=== PATIENT | male | born 1955 | race Caucasian/White ===

== ENCOUNTER 2018-11-03 13:43 | Inpatient (IN) | payer OTHER ==
[~2018-11-03] VITALS: Ht 185.4 cm; Wt 100.2 kg
[2018-11-03 14:09] VITALS: BP 143/82
[2018-11-03 14:31] LABS: ABSOLUTE NEUTROPHILS 6.1 thou/uL (1.4-8.2); BASOPHILS 0.9 % (0.0-2.0); EOSINOPHILS 5.2 % (0.0-3.0); LYMPHOCYTES 16.3 % (24.0-44.0); MCH 30.5 pg (26.0-34.0); MCHC 34.9 g/dL (28.0-37.0); MCV 87.3 fL (80.0-100.0); MONOCYTES 8.7 % (1.0-8.0); PLATELET COUNT 198 thou/uL (150-400); POLYS 68.9 % (36.0-66.0); RBC 5.27 mil/uL (4.50-6.00); RDW 14.5 % (10.5-14.5); WBC 8.8 thou/uL (4.0-11.0)
[2018-11-03 14:39] LABS: ANION GAP 9 mmol/L (7-16); BUN 22 mg/dL (7-18); CHLORIDE 101 mmol/L (98-107); CO2 30 mmol/L (21-32); CREATININE 1.2 mg/dL (0.7-1.3); GLUCOSE 94 mg/dL (74-106); POTASSIUM 4.5 mmol/L (3.5-5.1); SODIUM 140 mmol/L (136-145)
[2018-11-03 14:47] LABS: TROPONIN-I <0.06 ng/mL (<0.06)
[2018-11-03] MEDS ORDERED: LANSOPRAZOLE30 MG PO (15:57)
[2018-11-03] MEDS ORDERED: AMLODIPINE-BEN1 EAC2 PO (15:58)
[2018-11-03] MEDS ORDERED: VITAMIN D5000 UNIT PO (16:02)
[2018-11-03] MEDS ORDERED: ASPIR-TRIN325 MG PO (16:02)
[2018-11-03] MEDS ORDERED: UNICOMPLEX M TA1 TA1 PO (16:03)
[2018-11-03] MEDS ORDERED: FLAX SEED OIL1000 MG PO (16:03)
[2018-11-03 16:30] LABS: CHOLESTEROL 214 mg/dL (<200); HDL CHOLESTEROL 50 mg/dL (>40); LDL CHOLESTEROL 130 mg/dL (<100); TC:HDL 4.3 Ratio (Not establshd); TRIGLYCERIDE 171 mg/dL (<150); VLDL 34 mg/dL (<40)
--- NOTE | 2018-11-03 17:00 | EKG ---
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: [facility] : 1955 Requested By: Mayito Devi Order Number: [id number] MD: Silvino Rios Measurements Intervals [place] Rate: 76 P: 37 MO: 186 QRS: 16 QRSD: 122 T: 29 QT: 388 QTc: 437 Interpretive Statements Sinus rhythm Normal tracing Baseline wander in lead(s) V1,V2 No previous ECG available for comparison Electronically Signed On 11-03-2018 17:00:14 RADIOLOGICAL TECHNICIAN by Silvino Rios [email or web address] ��������������������������������������������� <ELECTRONICALLY SIGNED> ���������������������������������������� By: Silvino Rios MD, [facility] ��������������������������������������������� 11/03/18 1700 1346 1346 Silvino Rios MD, FACC /EPI
[2018-11-03 17:20] VITALS: BP 141/73
[2018-11-03 20:50] VITALS: BP 144/80
[2018-11-03 22:00] VITALS: BP 144/80
--- NOTE | 2018-11-04 02:53 | EKG ---
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 : 1955 Requested By: Silvino Rios Order Number: [id number] MD: Jonathan Rodríguez Measurements Intervals [place] Rate: 71 P: 55 OR: 166 QRS: 22 QRSD: 99 T: 26 QT: 396 QTc: 431 Interpretive Statements Sinus rhythm Early transition AC noise present Compared to ECG 11/03/2018 13:46:16 No significant changes Electronically Signed On 11-04-2018 2:53:40 FARM FACILITY MANAGER by Jonathan Rodríguez [email or web address] ��������������������������������������������� <ELECTRONICALLY SIGNED> ���������������������������������������� By: Jonathan Rodríguez MD ��������������������������������������������� 11/04/18 0253 08 08 Jonathan Rodríguez MD /EPI
[2018-11-04 04:45] VITALS: BP 105/62
[2018-11-04 05:51] LABS: MCH 29.6 pg (26.0-34.0); MCHC 33.7 g/dL (28.0-37.0); MCV 87.9 fL (80.0-100.0); RBC 4.67 mil/uL (4.50-6.00); RDW 14.7 % (10.5-14.5)
[2018-11-04 05:58] LABS: HEMOGLOBIN 13.8 gm/dL (14.0-18.0)
[2018-11-04 06:17] LABS: ALBUMIN 3.4 g/dL (3.4-5.0); CALCIUM 8.7 mg/dL (8.5-10.1); CREATININE 1.2 mg/dL (0.7-1.3); POTASSIUM 4.2 mmol/L (3.5-5.1); TOTAL BILIRUBIN 0.8 mg/dL (<0.1-1.0); TOTAL PROTEIN 6.3 g/dL (6.4-8.2); TROPONIN-I 0.22 ng/mL (<0.06)
[2018-11-04 08:30] VITALS: BP 119/68
--- NOTE | 2018-11-04 09:14 | NUR ---
ASSUME CARE 1900. PT DENIES ANY PAIN. SORENEES NOTED AT CATH SITE(RIGHT GROIN). MILD BRUISING AND DAINAGE NOTED BUT SITE IS SOFT/CDI. TOLERATES ACTIVITY WELL. PROGRESSING WELL WITH POC. PLAN IS POSSIBLE DISCHARGE TODAY OR TOMORROW. WILL CONTINUE TO MONITOR AND FOLLOW WITH POC
[2018-11-04 12:00] VITALS: BP 102/61
--- NOTE | 2018-11-04 12:46 | CATHLAB ---
[facility] [address] [place] [address] INVASIVE PROCEDURE REPORT Name: XAVIER GARNICA Room #: 215-P ADM IN M.R.#: [id number] ������������� Admission: 11/03/18 ������������� Attend Phys: Al Bowman MD Discharge: ��� ������������� ��� Date of : 59 Date of Service: 11/04/18 1245 �� Report #: [id number] �������� ��������������������������������������������[id number] THIS REPORT FOR: //name// APPROVED REPORT Study performed: 11/03/2018 17:14:26 Patient Details Patient Status: In-Patient Room #: The patient is a 63 year-old male Event Personnel Silvino Rios Slate Mixer, Cristine Aldana, Gil Veliz RN, Shira Denton RTR, SEASONER HAND Scrub, Juan José Perry RT(R)(CV) Scrub Procedures Performed Art Access - R femoral artery* Left Heart Cath w/or w/o Coronaries [id number] [facility] PTCA Single Vessel OM [id number] PCISINGLE Hemostasis w/ Mynx 12634 Initial Mod Sed Same Phys/QHP Gr5y 666399 83284 Mod Sed Same Phys/QHP Ea 173962 Indication Chest pain Procedure Narrative The patient was brought urgently to the Cardiac Catheterization Laboratory and was prepped and draped in a sterile manner. The Right Groin^ was infiltrated with 1% Lidocaine subcutaneous anesthesia. A PINNACLE 6FR Sheath #[id number] sheath was inserted into the RFA^. Coronary angiography was performed using coronary diagnostic catheters. The right coronary system was accessed and visualized with a JR 4 catheter. The left coronary system was accessed and visualized with a JL 4.5 catheter. The left ventricle was accessed and visualized with a Pigtail catheter. Left ventricular/Aortic Valve gradient assessed via catheter pullback. Left ventriculogram was performed in SORENSON projection. Closure device was deployed with a 6 Fr Mynx. The patient tolerated the procedure well and there were no complications associated with the procedure. There was no hematoma. Intraoperative Conscious Sedation Sedation start time: 17:27 Case end Time: 20:21 Fentanyl 100 mcg Versed [address] [address] INVASIVE PROCEDURE REPORT Name: XAVIER GARNICA Room #: 215-P [facility] IN [facility].#: [id number] ������������� Admission: 11/03/18 ������������� Attend Phys: Al Bowman MD Discharge: ��� ������������� ��� Date of : 59 Date of Service: 11/04/18 1245 �� Report #: [id number] �������� ��������������������������������������������[id number] Fluoro Time: 70.41 minutes Dose: DAP 62195.00 cGycm2 7954 mGy Contrast Type and Amount: Omnipaque 410 ml Coronary Angiography The patient's coronary anatomy is right dominant. Diagnostic Cath Left Main Large, alone angiographically normal left main LAD 60-65% proximal LAD stenosis Circumflex Mild proximal circumflex plaquing OM1 Severe 95% proximal first marginal branch stenosis OM2 Distally arising second marginal branch, angiographically normal Right Coronary The right coronary was dominant and moderately calcified. Variable disease throughout the proximal, mid and distal right coronary 65-70% proximal right coronary stenosis. 65-70% mid right coronary stenosis R PDA Sequential 50-60% proximal PDA stenoses Ramus Mild plaquing of the ramus branch Left Ventriculography The left ventricle is normal in size with normal contractility. The left ventricular ejection fraction is estimated to be 55-60%. Left ventricular wall motion abnormalities are present. There is no mitral insufficiency. Distal anterolateral wall hypokinesis IVUS Findings Sprinter OTW 2.0 x 12 #[id number] Hemodynamics The aortic pressure is 155/79 mmHg with a mean of 112 mmHg. The left ventricular pressure is 166/8 mmHg with a mean of mmHg. The left ventricular end diastolic pressure is 21 mmHg. PCI Technique Lesion Anticoagulation was achieved with Heparin, Integrilin. Patient was preloaded with Effient. Percutaneous coronary intervention was performed on the first obtuse marginal branch segment. The lesion stenosis prior to intervention was 99% with ALEX 3 flow. A LAUNCHER 6FR EBU 4 #[id number] Guide Catheter was used to engage the ostium. A Luge Wire .014 x 182CM #[id number] Interventional Guidewire was used to cross the lesion. [facility] [address] [place] [address] INVASIVE PROCEDURE REPORT Name: XAVIER GARNICA Room #: 215-P [facility] IN M.R.#: [id number] ������������� Admission: 11/03/18 ������������� Attend Phys: Al Bowman MD Discharge: ��� ������������� ��� Date of : 59 Date of Service: 11/04/18 1245 �� Report #: [id number] �������� ��������������������������������������������[id number] BALLOON DILATION A Balloon catheter Sprinter OTW 3.0 x 12 #[id number] was inserted and inflated up to 14.00atm for 12seconds. Additional Inflation: 12.00atm for 26seconds. Additional Inflation: 20.00atm for 62seconds. Extraordinarily difficult to wire this marginal branch due to 120� bend of the circumflex off of the left main, followed by a 90% proximal circumflex bend, then 90% angle at the origin of the first marginal branch. Ultimately after multiple wires, I was able to deliver a balloon to the first marginal branch. Moderate residual stenosis remained after a long inflation. Despite guide catheter exchanges, stiffer wire placement, and "jose" wire placement, this vessel would not allow even a low profile short stent to be delivered to this marginal branch. Overall excellent guide support. The wire consistently prolapsed into an ectatic, "capone" proximal LAD segment; the stent would not traverse the ostial circumflex angle. Dr. Barrow assisted in the procedure, and was also unable to deliver a stent to the OM1 angioplasty site. Final angiography reveals 50 % stenosis with ALEX 3 flow. BALLOON DILATION A Balloon catheter Sprinter OTW 2.0 x 12 #[id number] was inserted and inflated up to 20.00atm for 62seconds. Conclusion 1. Normal left ventricular systolic function with minimal distal anterolateral wall hypokinesis. EF 60% 2. Normal left main 3. Proximal LAD stensis 60-65% 4. Large OM1 with 95% proximal stenosis, treated with 3.0 x 12mm PTCA; not possible to deliver stent for reasons discussed above 5. RCA dominant with diffuse proximal, mid, and distal disease. Recommendations Cardiac Rehabilitation Referral Aggressive Medical Therapy Medications Administered JHON Inhibitor (any) Aspirin (any) Beta Jim (any) Statin (any) [facility] [address] [place] [address] INVASIVE PROCEDURE REPORT Name: XAVIER GARNICA Room #: 215-P ADM IN M.R.#: [id number] ������������� Admission: 11/03/18 ������������� Attend Phys: Al Bowman MD Discharge: ��� ������������� ��� Date of : 59 Date of Service: 11/04/18 [facility] �� Report #: [id number] �������� ��������������������������������������������[id number] Prasugrel Cardiac Rehabilitation Referral ��������������������������������������������� <ELECTRONICALLY SIGNED> ���������������������������������������� By: Silvino Rios MD, FACC ��������������������������������������������� 11/04/18 1245 1245 44 Silvino Rios MD, FACC /INF
--- NOTE | 2018-11-04 12:49 | EKG ---
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: : 1955 Requested By: Silvino Rios Order Number: [id number] MD: Silvino Rios Measurements Intervals [place] Rate: 73 P: 43 AK: 162 QRS: 33 QRSD: 88 T: 27 QT: 408 QTc: 450 Interpretive Statements Sinus rhythm Normal tracing Compared to ECG 11/03/2018 22:09:00 No significant changes Electronically Signed On 11-04-2018 12:49:43 HEAD OF PHYSICS by Silvino Rios [email or web address] ��������������������������������������������� <ELECTRONICALLY SIGNED> ���������������������������������������� By: Silvino Rios MD, [facility] ��������������������������������������������� 11/04/18 1249 0643 2 Silvino Rios MD, FACC /EPI
[2018-11-04 16:45] VITALS: BP 116/67
--- NOTE | 2018-11-04 18:00 | NUR ---
ASSUMED CARE OF PT AT SHIFT CHANGE. ASSESSMENTS CHARTED. MEDS GIVEN PER NOV. PT ALERT AND ORIENTED, VSS, NO C/O PAIN, DENIES CHEST PAIN, NO S/SX OF CARDIAC OR RESP DISTRESS NOTED. O2 SATS WNL ON ROOM AIR. GROIN SITE CONTINUES TO BE BRUISED, DRESSING REMAINS DRY AND INTACT WITH DRIED DRAINAGE. NO HEMATOMA. PT WALKED AROUND UNIT THIS SHIFT, TOLERATED WELL. URINE OUTPUT ADEQUATE, PT HAD BM THIS SHIFT. FAMILY AT BEDSIDE THROUGHOUT DAY. 3 OF 3 BOTTLE INTEGRILIN GTT CONTNUES AT 2MCG. PT DENIES CONCERNS AT THIS TIME. WILL CONTINUE TO MONITOR AND FOLLOW POC.
[2018-11-04 20:00] VITALS: BP 116/60
[2018-11-05 04:35] VITALS: BP 121/66
--- NOTE | 2018-11-05 05:19 | NUR ---
PT RESTED WELL, DENIES CHEST PAIN, VITALS WNL. RIGHT GROIN SITE UNCHANGED, BRUISED, NO HEMATOMA AND SOFT TO TOUCH.
[2018-11-05 08:55] VITALS: BP 128/68
[2018-11-05] MEDS ORDERED: EFFIENT10 MG PO (09:25)
[2018-11-05] MEDS ORDERED: CRESTOR20 MG PO (09:25)
[2018-11-05] MEDS ORDERED: TOPROL XL50 MG PO (09:25)
[2018-11-05 09:54] VITALS: BP 128/68
[2018-11-05 10:21] VITALS: BP 128/68
--- NOTE | 2018-11-05 10:51 | NUR ---
ASSUMED CARE OF PT AT SHIFT CHANGE. ASSESSMENTS CHARTED. MEDS GIVEN PER NOV. PT ALERT AND ORIENTED, SPOUSE AT BEDSIDE. NO C/O PAIN, DENIES CHEST PAIN. NO S/SX OF CARDIAC OR RESP DISTRESS NOTED. O2 SATS WNL ON ROOM AIR. DC ORDERS ACKNOWLEDGED AND IMPLEMENTED. DC PAPERWORK DISCUSSED WITH PT, COMMUNICATED UNDERSTANDING. IV REMOVED, TELE REMOVED, PT LEFT UNIT WITH ALL BELONGINGS AT APPROX 1050.
== END 2018-11-05 10:50 | disposition home or self-care (01) | DRG 250 ==
LOC: ER 13:43 → TBACV 20:27 → 2N 22:40
PROVIDERS: Emergency Medicine; Internal Medicine; Nurse Practitioner Gerontology; ADMIT Internal Medicine
PROC: B2151ZZ Fluoroscopy of Left Heart using Low Osmolar Contrast (ICD-10-PCS; principal; 2018-11-03)
PROC: B2111ZZ Fluoroscopy of Multiple Coronary Arteries using Low Osmolar Contrast (ICD-10-PCS; principal; 2018-11-03)
PROC: 4A023N7 Measurement of Cardiac Sampling and Pressure, Left Heart, Percutaneous Approach (ICD-10-PCS; principal; 2018-11-03)
PROC: 02703ZZ Dilation of Coronary Artery, One Artery, Percutaneous Approach (ICD-10-PCS; principal; 2018-11-03)
DX: I21.4 Non-ST elevation (NSTEMI) myocardial infarction (principal); E43 Unspecified severe protein-calorie malnutrition; I10 Essential (primary) hypertension; I25.119 Atherosclerotic heart disease of native coronary artery with unspecified angina pectoris; E78.5 Hyperlipidemia, unspecified; K21.9 Gastro-esophageal reflux disease without esophagitis; Z79.82 Long term (current) use of aspirin; Z95.5 Presence of coronary angioplasty implant and graft; Z82.49 Family history of ischemic heart disease and other diseases of the circulatory system; Z79.899 Other long term (current) drug therapy
CPT/HCPCS: 10081

== ENCOUNTER → 2018-11-24 | Outpatient (CLI) | payer OTHER ==
[~2018-11-24] MED LIST: AMLODIPINE-BEN1 EAC2 PO; ASPIR-TRIN325 MG PO; CRESTOR20 MG PO; EFFIENT10 MG PO; FLAX SEED OIL1000 MG PO; LANSOPRAZOLE30 MG PO; TOPROL XL50 MG PO; UNICOMPLEX M TA1 TA1 PO; VITAMIN D5000 UNIT PO
--- NOTE | 2018-11-24 15:54 | 2DMMODE ---
[facility] [place] [place] [address] 2 D/M-MODE ECHOCARDIOGRAM Name: XAVIER GARNICA [facility] [id number] ������������� Admission: 11/24/18 ������������� Attend Phys: Silvino Rios, Discharge: ��� ������������� ��� Date of : 59 Date of Service: 11/24/18 1554 �� Report #: [id number] �������� ��������������������������������������������[id number] THIS REPORT FOR: //name// APPROVED REPORT Study performed: 11/24/2018 13:39:42 EXAM: Comprehensive 2D, Doppler, and color-flow Echocardiogram Patient Location: Out-Patient Status: routine BSA: 2.20 HR: 58 bpm BP: 134/82 mmHg Rhythm: NSR Indications CAD Hx: Stents, HTN, HLP. 2D Dimensions RVDd: 47.01 mm IVSd: 9.70 (7-11mm) LVOT Diam: 21.90 (18-24mm) LVDd: 50.53 mm PWd: 8.90 (7-11mm) Ascending Ao: 35.63 (22-36mm) LVDs: 34.81 (25-40mm) Aortic Root: 34.79 mm Volumes Left Atrial Volume (Systole) Single Plane 4CH: 64.08 mL Single Plane 2CH: 64.82 mL LA ESV Index: 34.00 mL/m2 Aortic Valve AoV Peak Ervin.: 1.17 m/s AO Peak Gr.: 5.49 mmHg LVOT Max P.15 mmHg LVOT Max V: 1.02 m/s MARCELINA Vmax: 3.27 cm2 Mitral Valve E/A Ratio: 1.4 MV Decel. Time: 213.65 ms MV E Max Ervin.: 0.73 m/s MV A Ervin.: 0.52 m/s MV PHT: 61.96 ms [facility] [place] [address] [place] [address] 2 D/M-MODE ECHOCARDIOGRAM Name: XAVIER GARNICA Room #: REG [facility]#: [id number] ������������� Admission: 11/24/18 ������������� Attend Phys: Silvino Rios, Discharge: ��� ������������� ��� Date of : 59 Date of Service: 11/24/18 1554 �� Report #: [id number] �������� ��������������������������������������������[id number] IVRT: 101.50 ms Pulmonary Valve PV Peak Ervin.: 0.98 m/s PV Peak Gr.: 3.86 mmHg Pulmonary Vein P Vein S: 0.41 m/s P Vein A: 0.27 m/s P Vein D: 0.34 m/s P Vein A Dur.: 120.0 msec P Vein S/D Ratio: 1.21 Tricuspid Valve TR Peak Ervin.: 2.59 m/s RAP Estimate: 5.00 mmHg TR Peak Gr.: 26.76 mmHg PA Pressure: 32.00 mmHg Left Ventricle The left ventricle is normal size. There is normal left ventricular wall thickness. Left ventricular systolic function is normal. Distal anterior and inferoapical hypokinesis LVEF is 55-60%. Moderate diastolic dysfunction is present (pseudonormal filling). Right Ventricle The right ventricle is normal size. The right ventricular systolic function is normal. Atria Left atrium is mildly dilated. Right atrium is mildly dilated. Aortic Valve Aortic valve is trileaflet. No aortic regurgitation is present. There is no aortic valvular stenosis. Mitral Valve The mitral valve is normal in structure. Mild mitral regurgitation. Tricuspid Valve The tricuspid valve is normal in structure. Mild tricuspid regurgitation. Estimated PAP is 30-35mmHg. Pulmonic Valve The pulmonary valve is normal in structure. Trace pulmonic regurgitation. [facility] [address] [place] [address] 2 D/M-MODE ECHOCARDIOGRAM Name: XAVIER GARNICA Room #: REG Kalani#: [id number] ������������� Admission: 11/24/18 ������������� Attend Phys: Silvino Rios, Discharge: ��� ������������� ��� Date of : 59 Date of Service: 11/24/18 1554 �� Report #: [id number] �������� ��������������������������������������������[id number] The aortic root is normal in size. The ascending aorta is normal in size. IVC is normal in size and collapses >50% with inspiration. Pericardium There is no pericardial effusion. <Conclusion> Left ventricular systolic function is normal. Distal anterior and inferoapical hypokinesis LVEF is 55-60%. Moderate diastolic dysfunction Both atria are mildly dilated. Aortic valve is trileaflet. No aortic regurgitation or stenosis. The mitral valve is normal in structure. Mild mitral regurgitation. Mild tricuspid regurgitation. Estimated pulmonary artery pressure of 30-35mmHg. There is no pericardial effusion. ��������������������������������������������� <ELECTRONICALLY SIGNED> ���������������������������������������� By: Silvino Rios MD, [facility] ��������������������������������������������� 11/24/18 1554 1554 1554 Silvino Rios MD, FAC /INF
== END ==
LOC: CV 09:50
DX: I08.1 Rheumatic disorders of both mitral and tricuspid valves (principal); I65.23 Occlusion and stenosis of bilateral carotid arteries; I10 Essential (primary) hypertension; I25.10 Atherosclerotic heart disease of native coronary artery without angina pectoris; E78.5 Hyperlipidemia, unspecified; R09.89 Other specified symptoms and signs involving the circulatory and respiratory systems

== ENCOUNTER → 2019-04-03 | Outpatient (CLI) | payer OTHER ==
--- NOTE | 2019-04-03 17:14 | EXE ---
[facility] [address] [place] [address] STRESS ECHOCARDIOGRAM Name: XAVIER GARNICA MARIA VICTORIA Room #: REG CL Kalani#: [id number] ������������� Admission: 04/03/19 ������������� Attend Phys: Silvino Rios, Discharge: ��� ������������� ��� Date of : 59 Date of Service: 04/03/19 1714 �� Report #: [id number] �������� ��������������������������������������������[id number] THIS REPORT FOR: //name// APPROVED REPORT Study performed: 04/03/2019 13:10:23 Exam: Stress Echocardiogram Indication: CAD s/p PCI Patient Location: Out-Patient Stress Nurse: Justyna Steele RN Room #: Echo lab 2 Status: routine Ht: 6 ft 0 in HR: 57 bpm BP: 148/92 mmHg Rhythm: Bradycardia Medical History Medical History: CAD s/p stent, HTN, Hyperlipidemia Cardiac Risk Factors: HTN, Hyperlipidemia Previous Cardiac Procedures: PCI Exercise History: Physically active Procedure The patient underwent an Exercise Stress Test using the Arturo Protocol. Blood pressure, heart rate, and EKG were monitored. An Echocardiogram was performed by assistant technician in four stages in quad fashion. At peak stress, four selected images were obtained and placed side by side with resting images for comparison. Stress Test Details Stress Test: Exercise stress testing was performed using a Arturo protocol. HR Resting HR: 57 bpm Max Heart Rate (APMHR): 158 bpm Max HR Achieved: 184 bpm Target HR (85% APMHR): 134 bpm % of APMHR: 116 Recovery HR: 93 bpm HR response to stress: Normal HR response to stress BP Resting BP: 148/92 mmHg Max BP: 190/80 mmHg Recovery BP: 150/78 mmHg [facility] [place] [address] STRESS ECHOCARDIOGRAM Name: XAVIER GARNICA Room #: REG CL [facility]#: [id number] ������������� Admission: 04/03/19 ������������� Attend Phys: Silvino Rios, Discharge: ��� ������������� ��� Date of : 59 Date of Service: 04/03/19 1714 �� Report #: [id number] �������� ��������������������������������������������[id number] BP response to stress: Normal blood pressure response to stress. ECG Resting ECG: Sinus Rhythm Stress ECG: Sinus Rhythm ST Change: Horizontal ST depression Maximum ST Deviation: 1 mm Arrhythmia: None Recovery ECG: Sinus Rhythm Recovery ST Change: Normal Recovery ST Deviation: 0 mm Recovery Arrhythmia: None Clinical Reason for Termination: Maximal effort Exercise duration: 9 min sec Highest Stage Achieved: Stage 3: 3.4 mph at 14% grade. Exercise capacity: 10.4 METs Overall Exercise Capacity for Age: Good Angina Score: None Stress ECG Conclusion Clinical: Non-ischemic Abnormal exercise stress ECG consistent with stress-induced myocardial ischemia. Parmar Treadmill Score is 4.0 which is Moderate risk. Pre-Stress Echo The resting Echocardiogram showed normal left ventricular contractility with an estimated Ejection Fraction of about 55-60%. Post-Stress Echo The stress Echocardiogram showed abnormal left ventricular contractility with an estimated Ejection Fraction of about 60-65%. Hypokinesis of septum and inferior knapp consistent with an ischemic response. Conclusion Clinical Response: Non-ischemic Exercise Capacity: Average Stress ECG Response: Ischemic Stress Echo Images: Ischemic Abnormal stress echocardiogram with maximal exercise stress. Resting normal left ventricular systolic function with exercised-induced hypokinesis of the septum and inferior knapp No prior study available for comparison. [facility] [address] [place] [address] STRESS ECHOCARDIOGRAM Name: XAVIER GARNICA MARIA VICTORIA Room #: REG [facility]#: [id number] ������������� Admission: 04/03/19 ������������� Attend Phys: Silvino Rios, Discharge: ��� ������������� ��� Date of : 59 Date of Service: 04/03/191713 �� Report #: [id number] �������� ��������������������������������������������[id number] Other Information Study Quality: Adequate <Conclusion> Abnormal stress echocardiogram with maximal exercise stress. Resting normal left ventricular systolic function with exercised-induced hypokinesis of the septum and inferior knapp ��������������������������������������������� <ELECTRONICALLY SIGNED> ���������������������������������������� By: Silvino Rios MD, FAC ��������������������������������������������� 04/03/191713 13 13 Silvino Rios MD, FACC /INF
== END ==
LOC: CV 12:46
DX: I25.10 Atherosclerotic heart disease of native coronary artery without angina pectoris (principal); I10 Essential (primary) hypertension; E78.5 Hyperlipidemia, unspecified; Z95.818 Presence of other cardiac implants and grafts; Z88.0 Allergy status to penicillin

== ENCOUNTER → 2019-07-25 | Outpatient (CLI) | payer OTHER ==
[~2019-07-25] VITALS: Ht 182.9 cm; Wt 97.5 kg
[~2019-07-25] MED LIST changes: +ASA81BEC PO; +FISH OIL 1,0001 EAC9 PO; +FLAXSEED-FISH-400 MG PO; +PRAVASTATIN SOD20 MG PO
[2019-07-25 07:11] VITALS: BP 158/81
--- NOTE | 2019-07-25 09:22 | NUR ---
PT RETURNS FROM UNDERWRITING DIRECTOR AT 0855. INITIAL POST CATH ASSESSMENT DONE AT THIS TIME.
[2019-07-25 09:24] LABS: ABSOLUTE NEUTROPHILS 3.7 thou/uL (1.4-8.2); BASOPHILS 0.8 % (0.0-2.0); EOSINOPHILS 4.7 % (0.0-3.0); HEMATOCRIT 44.5 % (42.0-52.0); HEMOGLOBIN 14.7 gm/dL (14.0-18.0); LYMPHOCYTES 20.1 % (24.0-44.0); MCH 29.9 pg (26.0-34.0); MCHC 33.1 g/dL (28.0-37.0); MCV 90.3 fL (80.0-100.0); MONOCYTES 9.9 % (1.0-8.0); PLATELET COUNT 178 thou/uL (150-400); POLYS 64.5 % (36.0-66.0); RBC 4.93 mil/uL (4.50-6.00); RDW 13.7 % (10.5-14.5); WBC 5.8 thou/uL (4.0-11.0)
--- NOTE | 2019-07-25 09:25 | CATHLAB ---
[facility] [address] [place] [address] INVASIVE PROCEDURE REPORT Name: XAVIER GARNICA MARIA VICTORIA [facility] [id number] Admission: 07/25/19 Attend Phys: Silvino Rios, Discharge: Date of : 59 Report #: [id number] THIS REPORT FOR: //name// APPROVED REPORT Study performed: 07/25/2019 07:48:52 Patient Details Patient Status: Out-Patient Room #: The patient is a 64 year-old male Event Personnel Silvino Rios Radio Interference Trouble Shooter, Andie Sifuentes Jackson, Sherra RTR Monitor, Gil Veliz RN Procedures Performed Art Access - R femoral artery* Left Heart Cath w/or w/o Coronaries [id number] [facility] Hemostasis w/ Mynx 32170 Initial Mod Sed Same Phys/QHP Gr5y 815459 65077 Mod Sed Same Phys/QHP Ea [id number] Indication Chest pain Procedure Narrative The Left Groin^ was infiltrated with 2% Lidocaine subcutaneous anesthesia. A PINNACLE 6FR Sheath #[id number] sheath was inserted into the RFA^. Coronary angiography was performed using coronary diagnostic catheters. The right coronary system was accessed and visualized with a JR4 catheter. The left coronary system was accessed and visualized with a JL4 catheter. The left ventricle was accessed and visualized with a pigtail catheter. Left ventriculogram was performed in 30 degree projection. Closure device was deployed with a Fr MYNXGRIP 6/7F #[id number]. Hemostasis was obtained with manual pressure following sheath removal without any complications. The patient tolerated the procedure well and there were no complications associated with the procedure. There was no hematoma. Intraoperative Conscious Sedation Sedation start time: 8:05 Case end Time: 8:47 Fentanyl 50 mcg Versed 1 mg Fluoro Time: 1.32 minutes Dose: DAP 6183.30 cGycm2 770 mGy Contrast Type and Amount: Omnipaque 85 ml [facility] [place] [address] INVASIVE PROCEDURE REPORT Name: XAVIER GARNICA MARIA VICTORIA Room #: REG Kalani#: [id number] Admission: 07/25/19 Attend Phys: Silvino Rios, Discharge: Date of : 59 Report #: [id number] Coronary Angiography The patient's coronary anatomy is right dominant. Diagnostic Cath Left Main Large, angiographically normal left main LAD 65-70% ostial left anterior descending stenosis Circumflex 60-70% proximal circumflex stenosis after the first marginal branch OM1 Large first marginal branch with 75% proximal stenosis at the site of a remote angioplasty OM2 Distally arising second marginal branch with mild plaquing Right Coronary Dominant right coronary moderately calcified. Variable disease throughout the proximal, mid, and distal right coronary 60-70% proximal right coronary stenosis. 60-70% mid right coronary stenosis. 60% distal right coronary stenosis R PDA Sequential 85% stenoses at the proximal portion of the posterior lateral branch Ramus Large ramus branch, mild proximal plaquing. Left Ventriculography The left ventricle is normal in size with abnormal contractility. The left ventricular ejection fraction is estimated to be 50-55%. Left ventricular wall motion abnormalities are present. There is no mitral insufficiency. Distal anterior and apical hypokinesis Hemodynamics The aortic pressure is 151/75 mmHg with a mean of 114 mmHg. The left ventricular pressure is 155/9 mmHg with a mean of mmHg. The left ventricular end diastolic pressure is 25 mmHg. Conclusion 1. Normal left ventricular systolic function with distal anterior wall hypokinesis. EF 55% 2. Normal left main 3. Multivessel coronary artery disease Recommendations Cardiac Rehabilitation Referral [address] [place] [address] INVASIVE PROCEDURE REPORT Name: XAVIER GARNICA MARIA VICTORIA Room #: SHANNON Uriarte#: [id number] Admission: 07/25/19 Attend Phys: Silvino Rios, Discharge: Date of : 59 Report #: [id number] [facility] CABG <ELECTRONICALLY SIGNED> By: Silvino Rios MD, [facility] 07/25/19 0925 0925 Silvino Rios MD, FACC /INF
[2019-07-25 09:29] LABS: ALBUMIN 3.6 g/dL (3.4-5.0); CALCIUM 9.4 mg/dL (8.5-10.1); CREATININE 1.2 mg/dL (0.7-1.3); POTASSIUM 4.4 mmol/L (3.5-5.1); TOTAL BILIRUBIN 0.4 mg/dL (<0.1-1.0); TOTAL PROTEIN 6.7 g/dL (6.4-8.2)
[2019-07-25 09:33] LABS: APTT 28.7 Seconds (24.5-32.8); PROTIME 10.1 Seconds (9.3-11.4)
[2019-07-25 13:32] LABS: URINE BILIRUBIN NEGATIVE (Negative); URINE BLOOD NEGATIVE (Negative); URINE CLARITY CLEAR; URINE COLOR YELLOW; URINE GLUCOSE-RANDOM* NEGATIVE (Negative); URINE KETONES NEGATIVE (Negative); URINE LEUKOCYTES-REFLEX NEGATIVE (Negative); URINE NITRITE-REFLEX NEGATIVE (Negative); URINE PROTEIN (DIPSTICK) NEGATIVE (Negative); URINE SPECIFIC GRAVITY <= 1.005 (1.005-1.035); URINE UROBILINOGEN 0.2 E.U./dl (0.2-1.0)
--- NOTE | 2019-07-25 15:09 | HC ---
[facility] [place] [address] CONSULTATION Name: XAVIER GARNICA MARIA VICTORIA Room #: REG PEDRO Uriarte#: [id number] Admission: 07/25/19 Attend Phys: Silvino Rios MD, Discharge: Date of : 59 Report #: [id number] THIS REPORT FOR: //name// [facility] DATE OF SERVICE: 07/25/2019 We were asked to see the patient by Dr. Rios. HISTORY OF PRESENT ILLNESS: The patient is a 64-year-old with carotid artery disease. The patient has a history of stent placement and has recently begun to have exertional chest pain. There was concern about restenosis of previous stents already, but the recrudescence of symptoms led to repeat catheterization today and this shows important proximal left anterior descending restenosis as well as 85% right coronary and circumflex lesions. Left ventricular function appears satisfactory. PAST HISTORY: Significant for hypertension. MEDICATIONS: The patient takes amlodipine, benazepril, aspirin, Prevacid, metoprolol, Effient, Pravachol. ALLERGIES: INCLUDE PENICILLIN WHICH CAUSES HIVES. FAMILY HISTORY: Positive for precocious coronary disease in father and other male relatives. SOCIAL HISTORY: The patient is . He is retired. 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 Never has been a smoker, claims to drink 10 cans of beer per week. REVIEW OF SYSTEMS: GENERAL: No fever or chills. CARDIAC: As mentioned, exertional chest pain. No rest pain. PULMONARY: Denies shortness of breath or cough. GASTROINTESTINAL: Has GE reflux. No blood in stools. No nausea or vomiting. GENITOURINARY: No urgency or frequency. SKIN: No rash or infection. MUSCULOSKELETAL: No bone or joint complaints. NEUROLOGIC: No motor or sensory dysfunction. ENDOCRINE: No goiter. No palpitations. No tremor. PHYSICAL EXAMINATION: GENERAL: The patient is lying in bed, awake, alert. VITAL SIGNS: Blood pressure 160/90, pulse rate 54. [facility] [address] [place] [address] CONSULTATION Name: XAVIER GARNICA MARIA VICTORIA Room #: REG [facility]#: [id number] Admission: 07/25/19 Attend Phys: Silvino Rios MD, Discharge: Date of : 59 Report #: [id number] HEENT: No scleral icterus, no arcus. NECK: No mass, no bruit. CHEST: Clear to auscultation. HEART: Rhythm regular, no murmur. ABDOMEN: Soft, no mass. No tenderness. EXTREMITIES: 2+ distal pulses. No obvious saphenous vein problems. SKIN: No rash or infection. NEUROLOGIC: No motor or sensory dysfunction. MUSCULOSKELETAL: No asymmetry or deformity. I reviewed the cardiac catheterization findings with the patient and his . I have recommended coronary artery bypass surgery. Risks and details of this were discussed. Options and alternatives were reviewed. The patient understands all of this and wishes to proceed as advised. We will try to arrange a date for surgery as soon as possible. Thank you for the consult. <ELECTRONICALLY SIGNED> By: Wellington Jordan MD 07/25/19 1509 1247 1321 Wellington Jordan MD /nt
--- NOTE | 2019-07-26 16:53 | EKG ---
[address] [address] ELECTROCARDIOGRAM REPORT Name: XAVIER GARNICA MARIA VICTORIA Room #: REG CLI [facility]#: [id number] Admission: 07/25/19 Attend Phys: Silvino Rios MD, Discharge: Date of : 59 Report #: [id number] THIS REPORT FOR: //name// [facility] Test Date: 2019-07-25 Test Time: 07:39:46 Pat Name: XAVIER GARNICA Department: Room: Gender: M Snailer: : 1955 Requested By: Silvino Rios Order Number: [id number] MD: Silvino Rios Measurements Intervals [place] Rate: 60 P: 41 AR: 178 QRS: 29 QRSD: 101 T: 18 QT: 419 QTc: 419 Interpretive Statements Sinus rhythm Normal tracing Compared to ECG 11/04/2018 06:43:11 No significant changes Electronically Signed On 07-26-2019 16:52:57 CANDY ROLLING MACHINE OPERATOR by Silvino Rios [email or web address] <ELECTRONICALLY SIGNED> By: Silvino Rios MD, [facility] 07/26/19 1652 0739 8 Silvino Rios MD, FACC /EPI
== END | disposition home or self-care (01) ==
LOC: CATH 06:30
PROVIDERS: Surgery Vascular Surgery
DX: R07.9 Chest pain, unspecified (principal); I25.10 Atherosclerotic heart disease of native coronary artery without angina pectoris; I82.813 Embolism and thrombosis of superficial veins of lower extremities, bilateral; I10 Essential (primary) hypertension; E78.5 Hyperlipidemia, unspecified; K21.9 Gastro-esophageal reflux disease without esophagitis; I42.9 Cardiomyopathy, unspecified; I25.2 Old myocardial infarction; Z98.890 Other specified postprocedural states; Z79.899 Other long term (current) drug therapy; Z79.82 Long term (current) use of aspirin

== ENCOUNTER 2019-08-06 05:43 | Inpatient (IN) | payer OTHER ==
[2019-08-06] VITALS (15 sets, daily range): BP systolic 81–153; BP diastolic 37–80
[~2019-08-06] VITALS: Ht 182.9 cm; Wt 101.6 kg
[2019-08-06 12:36] LABS: HEMATOCRIT 31.4 % (42.0-52.0); MCH 30.4 pg (26.0-34.0); MCHC 33.8 g/dL (28.0-37.0); MCV 90.1 fL (80.0-100.0); RBC 3.48 mil/uL (4.50-6.00); RDW 13.6 % (10.5-14.5); WBC 15.3 thou/uL (4.0-11.0)
[2019-08-06 12:40] LABS: HEMOGLOBIN 10.6 gm/dL (14.0-18.0)
[2019-08-06 12:52] LABS: APTT 28.1 Seconds (24.5-32.8); FIBRINOGEN 134.4 mg/dL (210-360); PROTIME 14.7 Seconds (9.3-11.4)
[2019-08-06 12:58] LABS: INR 1.4
[2019-08-06 13:19] LABS: POC BE 2 mmol/L (-2.0 to +3.0); POC GLUCOSE 121 mg/dL (70-99); POC HCO3 26.9 mmol/L (22.0-26.0); POC HEMOGLOBIN 12.9 g/dL (14.0-18.0); POC POTASSIUM 4.2 mmol/L (3.5-5.1); POC SODIUM 137 mmol/L (136-145); POC pCO2 42.6 mmHg (35.0-45.0); POC pH 7.408 (7.360-7.450)
[2019-08-06 13:19] LABS: POC BE 3 mmol/L (-2.0 to +3.0); POC CA IONIZED 4.9 mg/dL (4.5-5.3); POC GLUCOSE 108 mg/dL (70-99); POC HCO3 28.1 mmol/L (22.0-26.0); POC HEMOGLOBIN 12.9 g/dL (14.0-18.0); POC POTASSIUM 4.3 mmol/L (3.5-5.1); POC SODIUM 138 mmol/L (136-145); POC pCO2 44.8 mmHg (35.0-45.0); POC pH 7.406 (7.360-7.450)
[2019-08-06 13:20] LABS: POC BE 0 mmol/L (-2.0 to +3.0); POC CA IONIZED 5.6 mg/dL (4.5-5.3); POC GLUCOSE 108 mg/dL (70-99); POC HCO3 24.1 mmol/L (22.0-26.0); POC HEMOGLOBIN 9.9 g/dL (14.0-18.0); POC SODIUM 138 mmol/L (136-145); POC pCO2 37.7 mmHg (35.0-45.0); POC pH 7.414 (7.360-7.450)
[2019-08-06 13:20] LABS: POC BE 3 mmol/L (-2.0 to +3.0); POC CA IONIZED 4.3 mg/dL (4.5-5.3); POC GLUCOSE 124 mg/dL (70-99); POC HCO3 28.1 mmol/L (22.0-26.0); POC HEMOGLOBIN 10.5 g/dL (14.0-18.0); POC POTASSIUM 4.3 mmol/L (3.5-5.1); POC SODIUM 136 mmol/L (136-145); POC pCO2 44.7 mmHg (35.0-45.0); POC pH 7.407 (7.360-7.450)
[2019-08-06 13:20] LABS: POC BE 3 mmol/L (-2.0 to +3.0); POC CA IONIZED 4.4 mg/dL (4.5-5.3); POC GLUCOSE 137 mg/dL (70-99); POC HEMOGLOBIN 10.5 g/dL (14.0-18.0); POC POTASSIUM 4.2 mmol/L (3.5-5.1); POC SODIUM 137 mmol/L (136-145); POC pCO2 40.2 mmHg (35.0-45.0); POC pH 7.436 (7.360-7.450)
[2019-08-06 13:20] LABS: POC BE 4 mmol/L (-2.0 to +3.0); POC CA IONIZED 4.4 mg/dL (4.5-5.3); POC GLUCOSE 116 mg/dL (70-99); POC HCO3 28.5 mmol/L (22.0-26.0); POC HEMOGLOBIN 9.2 g/dL (14.0-18.0); POC POTASSIUM 4.3 mmol/L (3.5-5.1); POC SODIUM 135 mmol/L (136-145); POC pCO2 42.8 mmHg (35.0-45.0); POC pH 7.431 (7.360-7.450)
[2019-08-06 13:20] LABS: POC BE 3 mmol/L (-2.0 to +3.0); POC CA IONIZED 4.3 mg/dL (4.5-5.3); POC GLUCOSE 121 mg/dL (70-99); POC HCO3 27.1 mmol/L (22.0-26.0); POC HEMOGLOBIN 9.2 g/dL (14.0-18.0); POC POTASSIUM 4.4 mmol/L (3.5-5.1); POC SODIUM 134 mmol/L (136-145); POC pCO2 41.5 mmHg (35.0-45.0); POC pH 7.423 (7.360-7.450)
[2019-08-06 13:54] LABS: BE(vivo) -2.8 mmol/L (-2 to +3); HCO3 23.3 mmol/L (22.0-26.0); PCO2 45.8 mmHg (35.0-45.0); PO2 91.3 mmHg (80.0-100.0); sO2 96.4 % (92.0-98.0)
[2019-08-06 13:55] LABS: pH 7.325 (7.360-7.450)
[2019-08-06 14:01] LABS: HEMATOCRIT 37.8 % (42.0-52.0); MCH 30.2 pg (26.0-34.0); MCHC 33.4 g/dL (28.0-37.0); MCV 90.5 fL (80.0-100.0); RBC 4.18 mil/uL (4.50-6.00); RDW 13.6 % (10.5-14.5); WBC 20.2 thou/uL (4.0-11.0)
--- NOTE | 2019-08-06 14:07 | NUR ---
1340: PT ARRIVED FROM OR WITH NURSING, SURGEON, GURWINDER. PUT ON MONITOR. NARAYAN ADVANCED BY CARLOS. PT WAKING, PROPOFOL GTT ON, WILL START PRECEDEX DUE TO DRINKING HX.
[2019-08-06 14:09] LABS: HEMOGLOBIN 12.6 gm/dL (14.0-18.0)
[2019-08-06 14:12] LABS: CREATININE 1.2 mg/dL (0.7-1.3); MAGNESIUM 2.5 mg/dL (1.8-2.4); POTASSIUM 4.4 mmol/L (3.5-5.1)
[2019-08-06 14:15] LABS: APTT 28.8 Seconds (24.5-32.8); INR 1.1; PROTIME 11.4 Seconds (9.3-11.4)
[2019-08-06 15:33] LABS: BE(vivo) -2.9 mmol/L (-2 to +3); PCO2 38.9 mmHg (35.0-45.0); PO2 71.4 mmHg (80.0-100.0)
--- NOTE | 2019-08-06 22:57 | NUR ---
At 2220 pt suddenly dropped SBP into 60's, heart rate low 60's. Albumin 5% started at 1000 cc/hr, no signs of bleeding from incision, chest tubes, or left leg. Urine output 25-30 cc/hr. Epicardial pacer turned on and Dr. Jordan called directly and updated on pt status. Stat Hgb drawn per order and orders to transfuse for Hgb < 9.0
[2019-08-07] VITALS (24 sets, daily range): BP systolic 79–158; BP diastolic 46–82
[2019-08-07 01:04] LABS: HEMATOCRIT 26.2 % (42.0-52.0); MCH 31.2 pg (26.0-34.0); MCHC 34.4 g/dL (28.0-37.0); MCV 90.7 fL (80.0-100.0); RBC 2.89 mil/uL (4.50-6.00); RDW 13.9 % (10.5-14.5); WBC 9.9 thou/uL (4.0-11.0)
[2019-08-07 01:13] LABS: APTT 31.2 Seconds (24.5-32.8); FIBRINOGEN 148.3 mg/dL (210-360); INR 1.1; PROTIME 11.4 Seconds (9.3-11.4)
--- NOTE | 2019-08-07 01:56 | NUR ---
Pt continued to have hypotensiion after 230 despite being given 250 cc more of 5% albumin. Dr. Jordan notified at 2315 and further orders received. Dr. Jordan here at midnight. Stat echocardiogram done, Dobutamine started at 2.5 mcg/kg/min per Dr. Jordan's order. 1 upc rapidly infused from [address] Jordan. Atrium changed out at 001, pt had 150 cc out of mediastinal tubes from 194 till 14 and 50 cc out of left plural tube. Pt has had 300 cc serosanguinous drainage from 14 till 0200 and 280 cc from plural tube. Pt remains alert and oriented, intermittent nausea. Echocardiogram (done at midnight) and stat pCXR done at [address] Jordan. Urine output had been about 10-20 cc/hr but was 60 cc over last hour. 2nd upc currently infusing; waiting of 2 units FFP.
[2019-08-07 05:46] LABS: HEMATOCRIT 26.9 % (42.0-52.0); HEMOGLOBIN 9.1 gm/dL (14.0-18.0); MCH 30.6 pg (26.0-34.0); MCHC 33.9 g/dL (28.0-37.0); MCV 90.3 fL (80.0-100.0); RBC 2.98 mil/uL (4.50-6.00); RDW 13.8 % (10.5-14.5); WBC 7.7 thou/uL (4.0-11.0)
[2019-08-07 05:49] LABS: CALCIUM 8.2 mg/dL (8.5-10.1); CREATININE 1.5 mg/dL (0.7-1.3); MAGNESIUM 2.1 mg/dL (1.8-2.4); POTASSIUM 4.5 mmol/L (3.5-5.1)
--- NOTE | 2019-08-07 07:42 | 2DMMODE ---
[address] [address] 2 D/M-MODE ECHOCARDIOGRAM Name: XAVIER GARNICA MARIA VICTORIA Room #: 246-P ADM IN M.R.#: [id number] Admission: 08/06/19 Attend Phys: Wellington Jordan MD Discharge: Date of : 59 Report #: [id number] THIS REPORT FOR: //name// APPROVED REPORT Study performed: 08/07/2019 00:27:10 EXAM: Comprehensive 2D, Doppler, and color-flow Echocardiogram Patient Location: ICU Room #: [facility] Status: stat/second baker BSA: 2.24 HR: 96 bpm Other Information Study Quality: Fair Technically limited study due to post op CABG. Indications STAT echo to rule out pericardial effusion status post CABG. Hypotension. Left Ventricle Left ventricular cavity appears under filled Left ventricular systolic function is normal. LVEF is 65%. Right Ventricle Right ventricle is not well visualized. Atria The left atrium size is normal. The right atrium size is normal. Aortic Valve The aortic valve is normal in structure. Mitral Valve The mitral valve is normal in structure. Tricuspid Valve The tricuspid valve is normal in structure. Pericardium There is no pericardial effusion. Probable left pleural [address] [address] 2 D/M-MODE ECHOCARDIOGRAM Name: XAVIER GARNICA MARIA VICTORIA Room #: 246-P [facility] IN .R.#: [id number] Admission: 08/06/19 Attend Phys: Wellington Jordan MD Discharge: Date of : 59 Report #: [id number] <Conclusion> Limited and technically difficult study Left ventricular systolic function is normal. Left ventricular cavity appears small and under filled LVEF is 65%. The aortic valve is normal in structure. The mitral valve is normal in structure. Probable left pleural effusion <ELECTRONICALLY SIGNED> By: Silvino Rios MD, FACC 08/07/1940 0742 1 Silvino Rios MD, FACC /INF
--- NOTE | 2019-08-07 08:02 | EKG ---
[place] [address] [facility] [place] [address] ELECTROCARDIOGRAM REPORT Name: XAVIER GARNICA MARIA VICTORIA Room #: 246-P ADM IN M.R.#: [id number] Admission: 08/06/19 Attend Phys: Wellington Jordan MD Discharge: Date of : 59 Report #: [id number] THIS REPORT FOR: //name// [facility] Test Date: 2019-08-06 Test Time: 14:30:38 Pat Name: XAVIER NEMOTOMAS Department: Room: 246 Gender: M Dietitian Chief: Eladio LANGFORD : 1955 Requested By: Umang Valencia Order Number: [id number] MD: Silvino Rios Measurements Intervals [place] Rate: 84 P: 66 NV: 183 QRS: 48 QRSD: 102 T: -7 QT: 388 QTc: 459 Interpretive Statements Sinus rhythm Borderline T abnormalities, diffuse leads Compared to ECG 07/25/2019 07:39:46 T-wave abnormality now present Electronically Signed On 08-07-2019 8:01:[address] by Silvino Rios [email or web address] <ELECTRONICALLY SIGNED> By: Silvino Rios MD, [facility] 08/07/19 0801 1430 1430 Silvino Rios MD, [facility] /EPI
--- NOTE | 2019-08-07 08:40 | EKG ---
[address] [place] [address] ELECTROCARDIOGRAM REPORT Name: AXVIER GARNICA MARIA VICTORIA Room #: 246-P ADM IN M.R.#: [id number] Admission: 08/06/19 Attend Phys: Wellington Jordan MD Discharge: Date of : 59 Report #: [id number] THIS REPORT FOR: //name// [facility] Test Date: 2019-08-07 Test Time: 07:03:08 Pat Name: XAVIER GARNICA Department: Room: 246 P Gender: M Esthetics Instructor: TYRESE : 1955 Requested By: Umang Valencia Order Number: [id number] MD: Silvino Rios Measurements Intervals [place] Rate: 100 P: 49 PA: 140 QRS: 41 QRSD: 74 T: 20 QT: 358 QTc: 462 Interpretive Statements Sinus tachycardia Abnormal R-wave progression, early transition ST elevation suggests post-operative pericarditis Compared to ECG 07/25/2019 07:39:46 ST (T wave) deviation now present Electronically Signed On 08-07-2019 8:40:38 [facility] [employer] by Silvino Rios [email or web address] <ELECTRONICALLY SIGNED> By: Silvino Rios MD, [facility] 08/07/19 0840 0703 0703 Silvino Rios MD, [facility] /EPI
--- NOTE | 2019-08-07 09:11 | HC ---
[facility] [place] [address] CONSULTATION Name: XAVIER GARNICA MARIA VICTORIA Room #: 246-P ADM IN M.R.#: [id number] Admission: 08/06/19 Attend Phys: Wellington Jordan MD Discharge: Date of : 59 Report #: [id number] THIS REPORT FOR: //name// CC: Young Jordan DATE OF SERVICE: 08/06/2019 REASON FOR CONSULTATION: Coronary artery disease. HISTORY OF PRESENT ILLNESS: The patient is a 64-year-old gentleman with hypertension, dyslipidemia and remote stenting of the ramus branch. He presented earlier this year with a limited non-Q-wave myocardial infarction and underwent angioplasty of the first marginal branch. At this time, multivessel coronary disease was identified. Recent angiography demonstrated mild left ventricular dysfunction with hypokinesis involving the distal anterolateral wall. Severe multivessel coronary disease was identified, for which coronary artery bypass grafting is planned. He has occasional episodes of chest discomfort, especially when working out in the cold. No heart failure symptoms including orthopnea, paroxysmal nocturnal dyspnea or lower extremity edema. He has had intolerable myalgias with rosuvastatin, although seems to be doing well with pravastatin. ALLERGIES: He is allergic to PENICILLIN. MEDICATIONS: His medicines include Lotrel 5/10 one daily, aspirin 81 mg daily, Prevacid 30 mg daily, metoprolol 50 mg daily, pravastatin 20 mg daily. PAST MEDICAL HISTORY: Medical records have been reviewed and include a history of coronary artery disease, dyslipidemia, hypertension, remote polio, herniorrhaphy. SOCIAL HISTORY: He has never been a smoker. . FAMILY HISTORY: Notable for premature coronary artery disease. REVIEW OF SYSTEMS: All systems negative except as that noted above. PHYSICAL EXAMINATION: GENERAL: He is a pleasant gentleman in no distress. VITAL SIGNS: Blood pressure is 153/80, heart rate of 54 and regular, respirations unlabored at 18. 6 feet tall, 215 pounds. HEENT: There are neither xanthelasma, subcutaneous xanthomata, oral mucosal or digital cyanosis or kyphoscoliosis present. CHEST: Clear to auscultation and percussion. CARDIAC: Regular rate and rhythm with normal S1, S2. No murmurs or rubs. [facility] [address] [place] [address] CONSULTATION Name: XAVIER GARNICA MARIA VICTORIA Room #: 246-P [facility] IN M.R.#: [id number] Admission: 08/06/19 Attend Phys: Wellington Jordan MD Discharge: Date of : 59 Report #: [id number] ABDOMEN: Soft and nontender. EXTREMITIES: Without cyanosis, clubbing or edema. Radial pulses are 2+. NEUROLOGIC: He is alert with a nonfocal exam. LABORATORY DATA: Sodium is 139, potassium 4.4, creatinine 1.2. White count 5.8, hemoglobin 14, hematocrit 44 and platelet count 178. EKG, sinus bradycardia, otherwise normal tracing. IMPRESSION: 1. Severe multivessel coronary artery disease. 2. Mild ischemic cardiomyopathy. 3. Dyslipidemia. 4. Hypertension. 5. Reflux disease. RECOMMENDATIONS: 1. Continued efforts towards aggressive risk factor modification. 2. Perioperative beta blockade as hemodynamics allow. 3. These issues were discussed with the patient and his . Questions answered. I will follow along with you. Thank you for asking me to participate in his care. <ELECTRONICALLY SIGNED> By: Silvino Rios MD, [facility] 08/07/19 0911 0843 0907 Silvino Rios MD, FACC /nt
--- NOTE | 2019-08-07 09:22 | NUR ---
RD consult received for nutrition education. Pt POD 1 for CABG x 5. Still in ICU, diet newly advanced. Will address nutrition education needs at later date once transferred out of ICU and closer to discharge.
--- NOTE | 2019-08-07 13:31 | NUR ---
Case openned to follow for dc planning. Pt is currently in ICU s/p CABGx5 yesterday and currently on 6liters of o2 per nc. Field Service Analyst visited with the pt and his Kayla at bedside. The pt is a&ox4 and indicates that he is retired and independent with gait and adl's. His is still working but she works from home and will be able to assist his as needed with his recovery. They have two steps to enter their home. No dme or hh history. Cm role introduced. No cm interventions indicated at this time. Will follow along should dc needs arise.
--- NOTE | 2019-08-07 17:30 | NUR ---
pt oob to chair. c/o nausea. zofran given. dr. negrete here. 02 sat 70s. increased nasal cannula to 14L. stopped cardene. stat abg drawn. 1800 dr. negrete still here. pt placed back in bed. c/o mild sob, no worse than earlier. chest xray done. pt placed on bipap 25/02 rate 12 100%. pt sat coming up to 96%. stat hh sent to lab.
--- NOTE | 2019-08-07 17:49 | O ---
[facility] [place] [address] OPERATIVE REPORT Name: XAVIER GARNICA MARIA VICTORIA Room #: 246-P ADM IN M.R.#: [id number] Admission: 08/06/19 Attend Phys: Wellington Jordan MD Discharge: Date of : 59 Report #: [id number] THIS REPORT FOR: //name// CC: Young Jordan DATE OF SERVICE: 08/06/2019 PREOPERATIVE DIAGNOSIS: Coronary artery disease. POSTOPERATIVE DIAGNOSIS: Coronary artery disease. OPERATION: Coronary artery bypass x 5 including left internal mammary artery to left anterior descending artery, saphenous vein to diagonal and marginal and saphenous vein to posterior descending and posterolateral branches of the right coronary. SURGEON: Wellington Jordan MD HIGHWAY TRAFFIC CONTROL TECHNICIAN: AYE Jain ANESTHESIA: General. INDICATIONS: The patient is a 64-year-old with coronary artery disease. The patient was seen after cardiac catheterization approximately 10 days ago. The patient presents with angina. Catheterization demonstrates a high-grade LAD, circumflex and diffuse right coronary stenoses. Left ventricular function is satisfactory. FINDINGS AND TECHNIQUE: After general anesthesia was established, saphenous vein was harvested using an endoscopic approach and prepared for use as a conduit. Exposure was obtained through median sternotomy. Left internal mammary artery was harvested from chest wall. Pericardial well was made. Cannulation sutures were placed. Heparin was given. Aorta was cannulated. Right atrium was cannulated. Cardioplegia needle was positioned in the aortic root. Retrograde cardioplegic catheter was placed in coronary sinus. Cardiopulmonary bypass was established. Aorta was cross clamped. Antegrade, then retrograde cardioplegia were given. Ice was poured into the pericardial well. The heart was stopped. During electromechanical arrest, the distal anastomoses were performed and end-to-side anastomosis was made between vein and the posterolateral branch of the right coronary. Both this and the PDA were larger in reality than they appeared on the films. This is likely due to poststenotic hypoperfusion. The posterolateral was a 1.5 mm vessel. Cold cardioplegia was given. The vein was [facility] [address] [place] [address] OPERATIVE REPORT Name: XAVIER GARNICA MARIA VICTORIA Room #: 246-P ADM IN M.R.#: [id number] Admission: 08/06/19 Attend Phys: Wellington Jordan MD Discharge: Date of : 59 Report #: [id number] sewn in end-to-side fashion to the posterolateral branch and then after cold cardioplegia was given, it was sewn in end-to-side fashion to the posterior descending artery. This was a 1.4 mm vessel. Cold cardioplegia was given. A separate segment of vein was sewn in end-to-side fashion to the circumflex marginal. This was a 1.5 mm vessel. Cold cardioplegia was given. The same segment of vein was sewn in end-to-side fashion to the large first diagonal. This was a 1.5 mm vessel. Cold cardioplegia was given. Left internal mammary artery was sewn in end-to-side fashion to the left anterior descending artery. Patency of this vessel was checked with the temperature technique. Cold cardioplegia was given. Two proximal anastomoses were performed. When these were complete, warm retrograde cardioplegia was given followed by warm continuous blood to the coronary sinus. When this infusion was complete, the crossclamp was removed, de-airing maneuvers were performed. The anastomoses were inspected and found to be satisfactory. As the patient warmed, nice cardiac activity resumed, chest tubes and pacing wires were placed, a marker was placed around the proximal anastomoses. When the patient was warmed, he was weaned from cardiopulmonary bypass. Venous cannula was removed. Protamine was given, the aortic cannula was removed. Flows were measured in the bypass grafts. When hemostasis was satisfactory, chest was irrigated with antibiotic solution and closed in the usual fashion. The patient was taken to the Intensive Care Unit in good condition having tolerated the procedure well. All counts reported as correct. <ELECTRONICALLY SIGNED> By: Wellington Jordan MD 08/07/19 1749 1640 1656 Wellington Jordan MD /nt
[2019-08-07 18:18] LABS: HCO3 20.4 mmol/L (22.0-26.0); PCO2 34.9 mmHg (35.0-45.0); PO2 45.1 mmHg (80.0-100.0); pH 7.385 (7.360-7.450); sO2 80.9 % (92.0-98.0)
[2019-08-07 18:49] LABS: HEMOGLOBIN 9.2 gm/dL (14.0-18.0)
--- NOTE | 2019-08-07 19:00 | NUR ---
hh results called to dr. negrete. update given. pt remains htn 150s. orders given.
[2019-08-08] VITALS (12 sets, daily range): BP systolic 106–136; BP diastolic 61–76
[2019-08-08 00:50] LABS: HEMATOCRIT 26.3 % (42.0-52.0); HEMOGLOBIN 8.8 gm/dL (14.0-18.0)
[2019-08-08 05:38] LABS: HEMATOCRIT 25.7 % (42.0-52.0); HEMOGLOBIN 8.8 gm/dL (14.0-18.0); MCH 30.7 pg (26.0-34.0); MCHC 34.1 g/dL (28.0-37.0); MCV 90.1 fL (80.0-100.0); RBC 2.85 mil/uL (4.50-6.00); RDW 13.9 % (10.5-14.5); WBC 11.3 thou/uL (4.0-11.0)
[2019-08-08 05:53] LABS: CALCIUM 8.9 mg/dL (8.5-10.1); CREATININE 1.3 mg/dL (0.7-1.3); POTASSIUM 4.3 mmol/L (3.5-5.1)
--- NOTE | 2019-08-08 07:52 | NUR ---
PATIENT ALERT AND ORIENTED X4, PAIN CONTROLLED WITH MEDICATION. ON BIPAP DURING BEGINNING OF SHIFT, PATIENT CURRENTLY ON 12L HIGHFLOW NASAL CANNULA, 02 SAT REMAINED ABOVE 92, NO COMPLAINTS OF DIFFICULTY BREATHING. CHEST TUBES INTACT WITH NO AIR LEAK. BLOOD PRESSURE CLOSELY MONITORED. PATIENT TRANSFERRED FROM BED TO CHAIR THIS MORNING AND MARCHED IN PLACE WITH NO ISSUES. PATIENT VERBALIZED PLAN OF INCREASED ACTIVITY. PATIENT ALSO EDUCATED ON THE IMPORTANCE OF PAIN CONTROL. NO SIGNS OF ACUTE DISTRESS NOTED AT THIS TIME. WILL CONTINUE TO MONITOR.
--- NOTE | 2019-08-08 14:00 | NUR ---
rosario kennedy here update given. reported pt sat dropping when standing up. no new orders. will leave ms chest tubes in for today.
[2019-08-09] VITALS (11 sets, daily range): BP systolic 85–113; BP diastolic 56–71
--- NOTE | 2019-08-09 16:57 | NUR ---
ASSESSMENTS AND INTERVENTIONS DOCCUMENTED. PATIENT RESTING DURING SHIFT CHANGE. PATIENTAND EDUCATED ABOUT POC. PATIENT'S CONCERNED ABOUT LIPTOR PATIENT IS TAKING CAUSING WEAKNESS. RN HELD LIPLIGIA AND INFORMED DR. PATIENT AMBULATING A LITTLE WITH PT. PATIENT COMPLAINING OF DIZZINESS WHEN STANDING. PATIENT CONTINUES TO REST THROUGH OUT THE SHIFT. NO COMPLAINTS OF PAIN.
--- NOTE | 2019-08-10 05:19 | NUR ---
ASSUMED CARE OF PATIENT AT 1900. VSS, AFEBRILE. RESTING IN BED MORE COMFORTABLY THIS SHIFT. REMAINS IN SINUS RHYTHM. SAT ON SIDE OF BED FOR HALF HOUR. GOAL IS TO WALK TODAY. REFUSES PAIN MEDS. PROGRESSING TOWARDS POC GOALS.
[2019-08-10 06:02] LABS: HEMATOCRIT 24.3 % (42.0-52.0); HEMOGLOBIN 8.1 gm/dL (14.0-18.0); MCH 30.4 pg (26.0-34.0); MCHC 33.2 g/dL (28.0-37.0); MCV 91.7 fL (80.0-100.0); RBC 2.65 mil/uL (4.50-6.00); RDW 14.4 % (10.5-14.5); WBC 9.1 thou/uL (4.0-11.0)
[2019-08-10 06:12] LABS: CALCIUM 8.6 mg/dL (8.5-10.1); CREATININE 1.2 mg/dL (0.7-1.3); POTASSIUM 4.1 mmol/L (3.5-5.1)
--- NOTE | 2019-08-10 12:56 | EKG ---
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 : 1955 Requested By: Wellington Jordan Order Number: [id number] MD: Silvino Rios Measurements Intervals [place] Rate: 135 P: [place]: QRS: 29 QRSD: 71 T: -31 QT: 303 QTc: 455 Interpretive Statements Incomplete analysis due to missing data in precordial lead(s) Atrial fibrillation Borderline T abnormalities, diffuse leads Baseline wander in lead(s) V2,V4 Missing lead(s): V3 Compared to ECG 08/07/2019 07:03:08 atrial fibrillation has replaced sinus rhythm Electronically Signed On 08-10-2019 12:55:57 HEALTH AND SAFETY TECHNICIAN by Silvino Rios [email or web address] <ELECTRONICALLY SIGNED> By: Silvino Rios MD, FACC 08/10/19 1255 [id number] Silvino Rios MD, FACC /EPI
--- NOTE | 2019-08-10 12:57 | EKG ---
[address] [place], [place] [address] ELECTROCARDIOGRAM REPORT Name: XAVIER GARNICA MARIA VICTORIA Room #: 246-P ADM IN M.R.#: [id number] Admission: 08/06/19 Attend Phys: Wellington Jordan MD Discharge: Date of : 59 Report #: [id number] THIS REPORT FOR: //name// [facility] Test Date: 2019-08-09 Test Time: 07:32:43 Pat Name: XAVIER GARNICA Department: Room: 246 P Gender: M Director Of Career Resources: Eladio LANGFORD : 1955 Requested By: Wellington Jordan Order Number: [id number] MD: Silvino Rios Measurements Intervals [place] Rate: 78 P: 28 [place]: 160 QRS: 26 QRSD: 80 T: 9 QT: 381 QTc: 434 Interpretive Statements Sinus rhythm Abnormal R-wave progression, early transition ST elevation suggests acute pericarditis Compared to ECG 08/07/2019 07:03:08 Sinus rhythm has replaced atrial fibrillation Electronically Signed On 08-10-2019 12:57:14 ANSWERER by Silvino Rios [email or web address] <ELECTRONICALLY SIGNED> By: Silvino Rios MD, FACC 08/10/19 1257 0732 0732 Silvino Rios MD, [facility] /EPI
--- NOTE | 2019-08-10 13:07 | EKG ---
[address] [place] [address] ELECTROCARDIOGRAM REPORT Name: XAVIER GARNICA MARIA VICTORIA Room #: 246-P ADM IN M.R.#: [id number] Admission: 08/06/19 Attend Phys: Wellington Jordan MD Discharge: Date of : 59 Report #: [id number] THIS REPORT FOR: //name// 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: Montse MCKAY : 1955 Requested By: Umang Valencia Order Number: [id number] MD: Silvino Rios Measurements Intervals [place] Rate: 78 P: 45 [place]: 145 QRS: 32 QRSD: 83 T: 28 QT: 401 QTc: 457 Interpretive Statements Sinus rhythm Abnormal R-wave progression, early transition ST elevation suggests acute pericarditis Compared to ECG 08/07/2019 07:03:08 No significant change was found Electronically Signed On 08-10-2019 13:07:13 SUPERVISOR LENDING ACTIVITIES by Silvino Rios [email or web address] <ELECTRONICALLY SIGNED> By: Silvino Rios MD, [facility] 08/10/19 1307 0701 0701 Silvino Rios MD, [facility] /EPI
--- NOTE | 2019-08-10 15:09 | NUR ---
PT IS ALERT AND ORIENTED X4. LUNGS CLEAR TO DIMINISHED. SITING UP IN THE CHAIR TODAY. AND WALKED HALLWAYS X2. COUGHING AND DEEP BREATHING DONE. PLEURAL CHEST TUBE. PHYSICAL THERAPY ASSISTED WITH WALKING WITH PT AROUND ICU UNIT. VOIDS PER URINAL. FAMILY AT BEDSIDE FOR SUPPORT. DENIES ANY PAIN OR NEEDING ANY MEDS WHEN ASKED FOR PAIN. OXYGEN AT 2 LITERS AND OXYGEN SATURATION IS 96 PERCENT. WILL CONTINUE TO ASSESS AND MONITOR PER NURSING . NO ISSUES NOTED OR CONERNS AT THIS TIME.
[2019-08-10 16:08] VITALS: BP 148/79
--- NOTE | 2019-08-10 17:54 | NUR ---
ASSUMED CARE OF PATIENT AT 1555 FROM ICU. PATIENT IS ABLE TO AMBULATE ON HIS OWN WITH MINIMAL ASSISTANCE WITH HIS CHEST TUBE. PATIENT IS COMFORTABLE AND IN BED. TELE PLACED ON THE PATIENT. ASSESSMENT COMPLETED. PATIENT TO CONTINUE WITH POC.
[2019-08-10 20:16] VITALS: BP 157/66
[2019-08-10 23:50] VITALS: BP 133/65
[2019-08-11 04:17] VITALS: BP 122/69
[2019-08-11 08:11] LABS: HEMATOCRIT 27.9 % (42.0-52.0); HEMOGLOBIN 9.3 gm/dL (14.0-18.0)
[2019-08-11 08:30] VITALS: BP 154/71
[2019-08-11 12:30] VITALS: BP 120/62
[2019-08-11 16:30] VITALS: BP 140/70
--- NOTE | 2019-08-11 18:00 | NUR ---
ASSUMED CARE OF PATIENT AT 0700. ASSESSMENTS CHARTED. CHEST TUBE PULLED THIS MORNING WITH FOAM DRESSING IN PLACE. PATIENT AMBULATED THE UNIT THREE TIMES WITH HIS AND TOLERATED WELL. PATIENT SPENT THE DAY IN THE RECLINED WITH HIS FEET ELEVATED. PATIENT TOOK PO LASIX WITH ADEQUATE OUTPUT. PATIENT DENIES ANY PAIN. CONTINUE WITH POC.
[2019-08-11 19:42] VITALS: BP 129/53
[2019-08-12 04:02] VITALS: BP 118/61
--- NOTE | 2019-08-12 04:56 | NUR ---
ASSESSMENTS CHARTED, MEDS DOCUMENTED GIVEN. PATIENT HR RUNNING TACKY AT BEGINNING OF SHIFT, DOWN IN THE EIGHTIES SHIFT ADVANCES. PATIENT REQUESTS NOT TO DISTURBED UNLESS ABSOLUTELY NECESSARY SINCE HE HAS NOT SLEPT IN DAYS, HAS ENOUGH TROUBLE AT HOME TRYING TO SLEEP WITHOUT MUCH SUCCESS. LEFT FOOT +2 EDEMA, DIURESING. UP AT [place] IN ROOM DURING SHIFT. PLAN OF CARE IS TO WEAN OFF OXYGEN SO HE CAN GO HOME.
[2019-08-12 07:00] VITALS: BP 139/80
[2019-08-12] MEDS ORDERED: FERREX 150 PLU1 EAC1 PO (09:42)
[2019-08-12] MEDS ORDERED: PACERONE 200 M200 M1 PO ×2 (09:42)
[2019-08-12 10:48] VITALS: BP 139/80
--- NOTE | 2019-08-12 14:47 | NUR ---
ASSUMED CARE OF PATIENT AT 0700. PATIENT IS UP AND AMBULATING THE HALLS WITH PT THIS AM AND ANTICIPATING DISCHARGE. ASSESSMENTS CHARTED. PATIENT SHOWERED AND PYREXA IN ADDITION TO NEW BANDAGES APPLIED TO ALL SITES ON LEFT LEG, ABDOMEN AND CHEST. PATIENT C/O OF MINIMAL LOWER EXTREMITY PAIN WHICH IS ALLEVIATED WITH TYLENOL. IV AND TELE REMOVED. NEW PRESCRIPTIONS GIVEN. DISCHARGE PAPERWORK REVIEWED. PATIENT UNDERSTANDS HIS RESTRICTIONS AND IS COMPLYING WITH THEM WELL. PATIENT IS AWARE OF FOLLOW UP APPOINTMENTS AND WILL CONTACT THE OFFICES ON TUESDAY. PATIENT STATES THAT HE FEELS BETTER THAN HE DID WHEN HE ARRIVED.
== END 2019-08-12 11:45 | disposition home or self-care (01) | DRG 235 ==
LOC: TBA 05:43 → ICU 05:43 → PRE 08:54 → ICU 13:29 → PRE 17:24 → 2N 08-10 16:02
PROVIDERS: Hospitalist; Physician Assistant; ADMIT Surgery Vascular Surgery
PROC: 5A1221Z Performance of Cardiac Output, Continuous (ICD-10-PCS; principal; 2019-08-06)
PROC: 06BQ4ZZ Excision of Left Saphenous Vein, Percutaneous Endoscopic Approach (ICD-10-PCS; principal; 2019-08-06)
PROC: 30233K0 Transfusion of Autologous Frozen Plasma into Peripheral Vein, Percutaneous Approach (ICD-10-PCS; principal; 2019-08-06)
PROC: 021309W Bypass Coronary Artery, Four or More Arteries from Aorta with Autologous Venous Tissue, Open Approach (ICD-10-PCS; principal; 2019-08-06)
PROC: B211110 Fluoroscopy of Multiple Coronary Arteries using Low Osmolar Contrast, Laser Intraoperative (ICD-10-PCS; principal; 2019-08-06)
PROC: 02100Z9 Bypass Coronary Artery, One Artery from Left Internal Mammary, Open Approach (ICD-10-PCS; principal; 2019-08-06)
PROC: 30233N1 Transfusion of Nonautologous Red Blood Cells into Peripheral Vein, Percutaneous Approach (ICD-10-PCS; principal; 2019-08-06)
PROC: 5A09357 Assistance with Respiratory Ventilation, Less than 24 Consecutive Hours, Continuous Positive Airway Pressure (ICD-10-PCS; 2019-08-07)
PROC: 5A09357 Assistance with Respiratory Ventilation, Less than 24 Consecutive Hours, Continuous Positive Airway Pressure (ICD-10-PCS; 2019-08-08)
DX: I25.10 Atherosclerotic heart disease of native coronary artery without angina pectoris (principal); I50.31 Acute diastolic (congestive) heart failure; R57.1 Hypovolemic shock; J95.821 Acute postprocedural respiratory failure; D62 Acute posthemorrhagic anemia; N17.9 Acute kidney failure, unspecified; I16.1 Hypertensive emergency; I48.0 Paroxysmal atrial fibrillation; I95.9 Hypotension, unspecified; I11.0 Hypertensive heart disease with heart failure; E78.5 Hyperlipidemia, unspecified; I25.5 Ischemic cardiomyopathy; K21.9 Gastro-esophageal reflux disease without esophagitis; Z96.662 Presence of left artificial ankle joint; Z79.01 Long term (current) use of anticoagulants; Z91.040 Latex allergy status; Z79.2 Long term (current) use of antibiotics; Z79.891 Long term (current) use of opiate analgesic; I25.2 Old myocardial infarction; Z88.0 Allergy status to penicillin; Z79.82 Long term (current) use of aspirin; Z79.899 Other long term (current) drug therapy; Z82.49 Family history of ischemic heart disease and other diseases of the circulatory system; Z88.8 Allergy status to other drugs, medicaments and biological substances; Y83.8 Other surgical procedures as the cause of abnormal reaction of the patient, or of later complication, without mention of misadventure at the time of the procedure; Y92.230 Patient room in hospital as the place of occurrence of the external cause; Z28.21 Immunization not carried out because of patient refusal; Z95.5 Presence of coronary angioplasty implant and graft
CPT/HCPCS: 10078; 10081; 47000; 47001; 47002; 47297; 48888; 50010; 50249; 50409; 50456; 50498; 50668; 51301; 52131; 52259; 52314; 53327; 53358; 54118; 56455; 56524; 56525; 56526; 56527; 56528; 56531; 56534; 56668; 56760; 56898; 57093; 57116; 57167; 62110; 62950; 65020; 65047; 65090; 65135; 85076

== ENCOUNTER → 2019-08-15 | Outpatient (CLI) | payer OTHER ==
[~2019-08-15] MED LIST changes: +AMIODARONE HCL400 MG PO; +FERREX 150 PLU1 EAC1 PO; +KLOR-CON M2020 MEQ PO; +PACERONE 200 M200 M1 PO; +TORSEMIDE20 MG PO; +XARELTO15 MG PO; +XARELTO20 MG PO
== END ==
LOC: ULTRA 11:14
DX: I82.4Z1 Acute embolism and thrombosis of unspecified deep veins of right distal lower extremity (principal); I48.92 Unspecified atrial flutter

== ENCOUNTER 2019-08-20 09:15 | Inpatient (IN) | payer OTHER ==
[~2019-08-20] VITALS: Ht 182.9 cm; Wt 91.6 kg
[~2019-08-20 09:15] MED LIST changes: -AMIODARONE HCL400 MG PO; -KLOR-CON M2020 MEQ PO; -TORSEMIDE20 MG PO; -XARELTO15 MG PO; -XARELTO20 MG PO
[2019-08-20 11:30] VITALS: BP 140/71
[2019-08-20] MEDS ORDERED: TORSEMIDE20 MG PO (13:28)
[2019-08-20] MEDS ORDERED: XARELTO20 MG PO (13:32)
[2019-08-20] MEDS ORDERED: KLOR-CON M2020 MEQ PO (13:33)
[2019-08-20] MEDS ORDERED: TOPROL XL50 MG PO (13:44)
[2019-08-20] MEDS ORDERED: PACERONE 200 M200 M1 PO (13:45)
[2019-08-20 15:02] LABS: HEMATOCRIT 34.7 % (42.0-52.0); HEMOGLOBIN 10.9 gm/dL (14.0-18.0); MCH 28.3 pg (26.0-34.0); MCHC 31.5 g/dL (28.0-37.0); MCV 89.7 fL (80.0-100.0); PLATELET COUNT 544 thou/uL (150-400); RBC 3.87 mil/uL (4.50-6.00); RDW 14.9 % (10.5-14.5); WBC 12.2 thou/uL (4.0-11.0)
[2019-08-20 15:16] LABS: INR 1.2; PROTIME 12.6 Seconds (9.3-11.4)
[2019-08-20 15:19] LABS: ALBUMIN 3.5 g/dL (3.4-5.0); CALCIUM 9.6 mg/dL (8.5-10.1); CREATININE 1.7 mg/dL (0.7-1.3); MAGNESIUM 2.4 mg/dL (1.8-2.4); POTASSIUM 4.7 mmol/L (3.5-5.1); TOTAL BILIRUBIN 0.4 mg/dL (<0.1-1.0); TOTAL PROTEIN 7.7 g/dL (6.4-8.2)
--- NOTE | 2019-08-20 15:22 | EKG ---
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
[2019-08-20 15:42] LABS: ABSOLUTE NEUTROPHILS 10.1 thou/uL (1.4-8.2); PLATELET ESTIMATE NORMAL
[2019-08-20 16:00] VITALS: BP 125/61
[2019-08-20 20:52] VITALS: BP 119/65
[2019-08-21 05:01] VITALS: BP 122/68
--- NOTE | 2019-08-21 05:45 | NUR ---
pt resting on and off in room, vss, no c/o pain, pt hoping to go home soon, will con't to monitor per ppoc.
[2019-08-21 09:09] LABS: ABSOLUTE NEUTROPHILS 6.7 thou/uL (1.4-8.2); BASOPHILS 1.3 % (0.0-2.0); HEMATOCRIT 33.9 % (42.0-52.0); HEMOGLOBIN 10.9 gm/dL (14.0-18.0); LYMPHOCYTES 12.4 % (24.0-44.0); MCH 28.7 pg (26.0-34.0); MCHC 32.1 g/dL (28.0-37.0); MCV 89.6 fL (80.0-100.0); PLATELET COUNT 538 thou/uL (150-400); POLYS 74.3 % (36.0-66.0); RBC 3.78 mil/uL (4.50-6.00); RDW 14.8 % (10.5-14.5)
[2019-08-21 09:17] LABS: CALCIUM 9.8 mg/dL (8.5-10.1); CREATININE 1.7 mg/dL (0.7-1.3); POTASSIUM 4.6 mmol/L (3.5-5.1)
[2019-08-21 11:33] LABS: URINE BILIRUBIN NEGATIVE (Negative); URINE BLOOD NEGATIVE (Negative); URINE CLARITY CLEAR; URINE COLOR YELLOW; URINE GLUCOSE-RANDOM* NEGATIVE (Negative); URINE KETONES NEGATIVE (Negative); URINE LEUKOCYTES-REFLEX NEGATIVE (Negative); URINE NITRITE-REFLEX NEGATIVE (Negative); URINE PROTEIN (DIPSTICK) NEGATIVE (Negative); URINE SPECIFIC GRAVITY 1.025 (1.005-1.035); URINE UROBILINOGEN 0.2 E.U./dl (0.2-1.0)
[2019-08-21] MEDS ORDERED: AMIODARONE HCL400 MG PO ×2 (11:36→11:38)
[2019-08-21 12:07] VITALS: BP 107/65
[2019-08-21] MEDS ORDERED: XARELTO15 MG PO (14:11)
[2019-08-21 15:36] VITALS: BP 107/65
--- NOTE | 2019-08-21 16:21 | NUR ---
ASSESSMENT CHARTED. PT ALERT AND ORIENTED. VSS. MED REC COMPLETED. EVALUATED BY PHYSICAL THERAPIST. SEEN BY DR. ZIMMER. ORDERS GIVEN TO DISCHARGE PT TO HOME. DISCHARGE INSRUCTIONS GIVEN TO PT AND THE . PT VERBERLISED UNDERSTANDING. PT LEFT THE FACILITY ACCOMPANIED BY THE .
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
== END 2019-08-21 16:25 | disposition home or self-care (01) | DRG 299 ==
LOC: 3N 09:15 → 2N 11:06 → TBA 08-21 10:59 → 2N 08-21 11:02 → ENTRNSPT 08-21 16:03 → 2N 08-21 16:25
PROVIDERS: Internal Medicine; ADMIT Hospitalist
DX: I82.401 Acute embolism and thrombosis of unspecified deep veins of right lower extremity (principal); E43 Unspecified severe protein-calorie malnutrition; D75.82 Heparin induced thrombocytopenia (HIT); I25.10 Atherosclerotic heart disease of native coronary artery without angina pectoris; I10 Essential (primary) hypertension; E78.5 Hyperlipidemia, unspecified; K21.9 Gastro-esophageal reflux disease without esophagitis; N28.9 Disorder of kidney and ureter, unspecified; I48.91 Unspecified atrial fibrillation; Z82.49 Family history of ischemic heart disease and other diseases of the circulatory system; Z95.1 Presence of aortocoronary bypass graft; Z86.718 Personal history of other venous thrombosis and embolism; Z79.01 Long term (current) use of anticoagulants; Z88.0 Allergy status to penicillin; Z88.8 Allergy status to other drugs, medicaments and biological substances; Z91.040 Latex allergy status; Z79.82 Long term (current) use of aspirin; Z95.5 Presence of coronary angioplasty implant and graft; I25.2 Old myocardial infarction; Z79.899 Other long term (current) drug therapy
CPT/HCPCS: 10081; 10797